=== PATIENT | female | born 1995 | race Caucasian/White ===

== ENCOUNTER 2021-05-31 03:26 | Emergency (ER) | payer BC ==
[2021-05-31 04:34] LABS: RED BLOOD COUNT 4.83 M/UL (4.00-5.10); WHITE BLOOD COUNT 2.7 K/UL (4.5-11.0)
[2021-05-31 05:08] LABS: BUN/CREATININE RATIO 10 (0-10)
[2021-05-31] MEDS ORDERED: VENTOLIN HFA 66.7 GM INH (06:18)
[2021-05-31] MEDS ORDERED: ZOFRAN ODT 4 MG4 MG PO (06:18)
[2021-05-31] MEDS ORDERED: DOXYCYCLINE MO100 MG PO (06:18)
[2021-05-31] MEDS ORDERED: DECADRON6 MG PO (06:23)
[2021-05-31] MEDS ORDERED: ASPIRIN CHEWABL81 MG PO (06:23)
== END 2021-05-31 07:20 | disposition home or self-care (01) ==
LOC: ER1 03:26
PROVIDERS: Physician Assistant
DX: U07.1 COVID-19 (principal); J12.82 Pneumonia due to coronavirus disease 2019; Z87.442 Personal history of urinary calculi; Z90.89 Acquired absence of other organs
CPT/HCPCS: 71045; 80053; 82550; 82553; 83874; 83880; 84484; 84703; 85025; 85379; 85610; 85730; 93005; 96374; 96375; 99285; J1100; J2405